=== PATIENT | male | born 1995 | race Caucasian/White ===

== ENCOUNTER 2017-02-11 15:21 | Emergency (ER) | payer SELFPAY ==
[~2017-02-11] VITALS: Ht 170.2 cm; Wt 67.9 kg
[2017-02-11 15:37] VITALS: BP 102/65; PULSE 85; TEMP 36.7; O2SAT 98; Ht 170.2 cm; Wt 67.9 kg
[2017-02-11] MEDS ORDERED: LIDOCAINE/EPINEPH/TETRACAINE 1 EA SYR EXT STA (15:57)
[2017-02-11] MEDS ORDERED: LIDOCAINE/EPINEPH/TETRACAINE 1 EA SYR ONE (15:58)
--- NOTE | 2017-02-11 16:41 | DIAGNOSTIC IMAGING REPORT ---
R FOOT MIN 3 VIEWS ROUTINE CLINICAL HISTORY: Right foot pain COMPARISON: None. DISCUSSION: No fractures or dislocations are visualized. There are no erosive or destructive changes. There is a small corticated ossicle projected at the base of the metatarsals on the lateral view. IMPRESSION: 1. No acute fractures or dislocations. 2. No erosive or destructive changes. Electronically signed by: Yves Booth M.D. 02/11/2017 4:39 PM Dictated Date/Time: 02/11/2017 4:39 PM
--- NOTE | 2017-02-11 17:25 | EMERGENCY ROOM VISIT NOTE ---
ED Visit Note First contact with patient: 15:48 CHIEF COMPLAINT: Facial laceration, right foot pain HISTORY OF PRESENT ILLNESS: This 21-year-old male patient presents emergency department, ambulatory, with a precision dyer who is paid by his employer, complaining of a laceration to the left side of the face and right foot pain. The patient was drinking tequila last evening with friends, and he states they began throwing beer bottles. At [id number] this morning, the patient states he tripped over a beer bottle on the floor, and fell onto a piece of broken glass. The patient states he had approximately 1/2 of a fifth of tequila throughout the evening. The patient states he landed face first, but did not lose consciousness. He called the precision dyer at [id number] in the morning to come pick him up. The precision dyer states he noticed the cut at that time, but thought it appropriate to keep the patient at his house until he sobered up prior to taking him to have the cut evaluated. They went to [employer] first, and were sent here. The patient states he also injured his foot when he fell, but is uncertain exactly how the injury may have occurred. He complains of pain on the dorsal aspect of the foot, worse with ambulation and palpation. No open wounds on the foot. There was no loss of consciousness, vomiting, or unusual behavior afterwards. Denies neck pain. No headache, nausea, or blurred vision. There is no active bleeding. The patient rates the pain as throbbing and sharp and 10 /10. The patient's tetanus shot is up to date. REVIEW OF SYSTEMS: A 6 system review of systems was completed with positives and pertinent negatives listed in the HPI. ALLERGIES: None MEDICATIONS: None PMH: None SOCIAL HISTORY: The patient lives locally with family. He denies drug, tobacco use. He does admit to alcohol use. PHYSICAL EXAM: Vital Signs: Reviewed Nurse's notes, vital signs stable. GENERAL : This is a 21 year old male patient, in no acute distress, well-developed, well-nourished. NEURO: The patient is alert and oriented to person place and time. No focal neurological defects. EYES: Pupils are round, equal, and react to light. EOMI. EARS: No hemotympanum. NECK: Supple. No cervical spine tenderness. FACE: There is some ecchymosis and bruising noted surrounding the left orbit and left forehead. No facial bone tenderness or mandibular tenderness. The mouth can open fully. The teeth are well aligned. No loose or chipped teeth. SKIN: There is a 3 cm laceration on the left side of the face in the vertical plane. This is in the shape of an upside down V, with a point at the superior aspect of the laceration and a skin flap from this area. The edges gape apart with traction. There is no active bleeding and no foreign material in the wound. There are no deep structures present. There are two more superficial lacerations noted in the same area which are not gaping open and no active bleeding or deep structures present. Capillary refill less than two seconds. Normal sensation to light and sharp touch. MUSCULOSKELETAL: significant tenderness on the dorsal aspect of the right foot, overlying the 2nd through 4th metatarsals. Mild bruising and swelling. The patient is able to ambulate. The patient has full active and passive ROM at the toes and ankle. RADIOLOGY: R FOOT MIN 3 VIEWS ROUTINE CLINICAL HISTORY: Right foot pain COMPARISON: None. DISCUSSION: No fractures or dislocations are visualized. There are no erosive or destructive changes. There is a small corticated ossicle projected at the base of the metatarsals on the lateral view. IMPRESSION: 1. No acute fractures or dislocations. 2. No erosive or destructive changes. Electronically signed by: Yves Booth M.D. 02/11/2017 4:39 PM Dictated Date/Time: 02/11/2017 4:39 PM EMERGENCY DEPARTMENT COURSE: I examined the patient. He presents with a gaping facial wound which is approximately 12-14 hours old. While this is past the ideal window for repairing a laceration, I do feel that because of the depth of the wound, and that it is gaping open and on the face, loose sutures would be appropriate. Verbal consent was obtained to perform the procedure. LET gel was applied to the laceration and allowed to sit for approximately 30 minutes. Using sterile technique the wound was cleansed with Betadine. The area was sterilely draped. Once the patient was anesthetized, the wound was copiously irrigated under pressure with sterile saline. The wound was explored and was as described above. The laceration was repaired using 8 loose, simple interrupted 6-0 nylon sutures with the wound edges being well approximated. The patient tolerated the procedure well. Hemostasis was achieved. The area was cleaned with sterile saline and dressed with bacitracin ointment. The patient was given his first dose of Keflex and a home pack due to the length of time the laceration remained open to help prevent infection. X-ray of the right foot was performed and without any acute fractures or abnormalities. Discharge instructions reviewed. The patient was discharged home in good condition. I attest that I have personally reviewed the patient's current medication list. Patient was found to have normal blood pressure on screening and does not require follow-up. DIFFERENTIAL DIAGNOSIS: Laceration, contusion, orbital fracture, concussion, closed head injury, intracranial hemorrhage, foot fracture, foot contusion, sprain or strain, and others DIAGNOSIS: Facial laceration, right foot contusion. Current/Historical Medications Scheduled Cephalexin Monohydrate (Keflex), 500 MG PO TID Allergies Coded Allergies: No Known Allergies (Unverified , 02/11/17) Vital Signs Date Time Temp Pulse Resp B/P (MAP) Pulse Ox O2 Delivery O2 Flow Rate FiO2 02/11/17 15:37 36.7 85 16 102/65 98 Room Air Medications Administered Medications (Trade) Dose Ordered Sig/Keyla Route Start Time Stop Time Status Last Admin Dose Admin Tetracaine/ Epinephrine/ Lidocaine (L.e.t. Gel 4%/ 1:100/0.5%) 1 ea UD STAT EXT 02/11/17 15:57 02/11/17 15:59 DC 02/11/17 15:57 1 EA Cephalexin Monohydrate (Keflex 500MG Home Pack) 1 homepack NOW STAT PO 02/11/17 17:42 02/11/17 17:43 DC 02/11/17 17:54 1 HOMEPACK Cephalexin Monohydrate (Keflex Cap) 500 mg NOW STAT PO 02/11/17 17:42 02/11/17 17:43 DC 02/11/17 17:52 500 MG Departure Information Impression Primary Impression: Facial laceration Additional Impression: Contusion of right foot Dispostion Home / Self-Care Condition GOOD Prescriptions Cephalexin Monohydrate (Keflex) 500 Mg Cap 500 MG PO TID for 5 Days, #15 CAP Prov: Evon Curry, POWER 02/11/17 Referrals No Doctor, Assigned (PCP) Patient Instructions ED Laceration Facial Sutr Tape, [facility] Additional Instructions You have received 8 sutures on your face. These sutures are NOT dissolvable and WILL need to be removed by a health care provider in 4-6 days. You can return to the Emergency Department or contact your Primary Care Provider to have the sutures removed. Proper wound care is essential for adequate wound healing and infection prevention. You can shower and clean the wound with soap and water. Do not scour over the wound, pat dry with a towel. Do not submerse the wound (i.e. bathe or dish wash) until the sutures have been removed. You can use an antibiotic ointment with a dressing over the wound for the next 3-4 days. After this time you may leave the wound dry and open to the air. If crust develops over the wound you can use a Q-tip to apply a 1:1 peroxide:water solution to clean the wound. Cephalexin(Keflex) 500mg: Take one pill three times daily for 5 days to prevent skin infection. All antibiotics can cause diarrhea. If this occurs and you feel worse or it does not resolve in 1-2 days follow up with your doctor or return to the Emergency Department as this could be signs of serious underlying problems. Any medication can cause an allergic reaction, stop the pills immediately and return to the ER for rash, hives, breathing difficulties, or swelling. Look for signs of infection of the wound including: increased pain, swelling, foul discharge, streaking, or increased temperature. If any of these are noticed you should return to the Emergency Department for further assessment and treatment. As with any laceration you may have received nerve damage to the surrounding tissues. This damage may or may not be permanent. You should keep the area covered with sunscreen for the first 6 months to 1 year when at risk for exposure to help minimize scarring. You can also use scar reducing creams or Vitamin E oil to help minimize scarring. For pain control, you can use the following [id number] medicines (if >12 yo): Ibuprofen(Motrin, Advil) may be used for fever or pain. Use 600mg every six hours as needed. Take with food. Avoid using more than 2400mg in a 24 hour period. Do not use 2400mg per day for more than three consecutive days without physician direction. Prolonged inappropriate use can lead to stomach upset or ulcers. (AND/OR) Acetaminophen(Tylenol) may be used for fever or pain. Use 1000mg every six hours as needed. Avoid using more than 3000mg in a 24 hour period. Use ice on the foot to help with pain and swelling. X-ray did not reveal any fractures. Return to the emergency department if your symptoms worsen despite treatment course outlined above or if you experience significant swelling around the eye, inability to move the eyeball in one direction, worsening bruising, or visual disturbances. Problem Qualifiers Primary Impression: Facial laceration Encounter type: initial encounter Qualified Codes: S01.81XA - Laceration without foreign body of other part of head, initial encounter Additional Impression: Contusion of right foot Encounter type: initial encounter Qualified Codes: S90.31XA - Contusion of right foot, initial encounter
[2017-02-11] MEDS ORDERED: CEPHALEXIN MONOHYDRATE 250 MG CAP PO STA (17:42)
[2017-02-11] MEDS ORDERED: CEPHALEXIN 500MG HOME PACK 1 EA BTL PO STA (17:42)
[2017-02-11] MEDS ORDERED: CEPH500C PO (17:43)
== END 2017-02-11 17:43 | disposition home or self-care (01) ==
LOC: C.EDB 15:23 → C.EDD 17:43
DX: S01.81XA Laceration without foreign body of other part of head, initial encounter (principal); S90.31XA Contusion of right foot, initial encounter; W01.0XXA Fall on same level from slipping, tripping and stumbling without subsequent striking against object, initial encounter

== ENCOUNTER 2017-02-18 16:11 | Emergency (ER) | payer SELFPAY ==
[~2017-02-18] VITALS: Ht 170.2 cm; Wt 69.8 kg
[2017-02-18 16:12] VITALS: BP 115/65; PULSE 81; TEMP 36.7; O2SAT 98; Ht 170.2 cm; Wt 69.8 kg
--- NOTE | 2017-02-18 16:30 | EMERGENCY ROOM VISIT NOTE ---
ED Visit Note First contact with patient: 16:20 CHIEF COMPLAINT: Suture removal This patient returns to the ED today for removal of sutures that were placed 7 days ago. There has been no swelling, redness, or drainage from the wound. The patient feels like the laceration is healing well. REVIEW OF SYSTEMS: Head: No headache, injury or neck pain. Skin: No rash, new lesions, or masses. General: No fever or chills, fatigue, loss of appetite , or significant recent weight gain or loss. PMH: Unchanged from previous visit SOCIAL HISTORY: Patient lives at home. PHYSICAL EXAM: Vital Signs: Reviewed Nurse's notes. There is a sutured wound on the left cheek with no signs of infection. There is no erythema, swelling, or tenderness. EMERGENCY DEPARTMENT COURSE: The sutures were removed without any difficulty and there was no separation of the wound edges. DIAGNOSIS: Healing laceration and suture removal DISCHARGE INSTRUCTIONS AND TREATMENT: Wash any remaining crusts off of the wound today and resume your normal activities. Please continue to apply vitamin E oil to reduce scar. Please also apply sunscreen when out in the sun. This will also help prevent scar.
== END 2017-02-18 16:35 | disposition home or self-care (01) ==
LOC: C.EDB 16:12 → C.EDD 16:35
DX: S01.412D Laceration without foreign body of left cheek and temporomandibular area, subsequent encounter (principal); X58.XXXD Exposure to other specified factors, subsequent encounter